=== PATIENT | male | born 1990 | race Caucasian/White ===

== ENCOUNTER 2020-07-28 15:54 | Inpatient (IN) | payer OTHER ==
--- NOTE | 2020-07-28 18:47 | HP ---
CIWA Score Nausea/Vomitin Muscle Tremors: 3 Anxiety: 3 Agitation: 1-Slight > Activity Paroxysmal Sweats: 2 Orientation: 0-Oriented Tacttile Disturbances: 0-None Auditory Disturbances: 0-None Visual Disturbances: 0-None Headache: 2-Mild CIWA-Ar Total Score: 13 - Admission Criteria OASAS Guidelines: Admission for Medically Managed Detox: Requires at least one of the followin. CIWA greater than 12 2. Seizures within the past 24 hours 3. Delirium tremens within the past 24 hours 4. Hallucinations within the past 24 hours 5. Acute intervention needed for co occurring medical disorder 6. Acute intervention needed for co occurring psychiatric disorder 7. Severe withdrawal that cannot be handled at a lower level of care (continued vomiting, continued diarrhea, abnormal vital signs) requiring intravenous medication and/or fluids 8. Admission ROS [facility] Chief Complaint: Seeking admission to detox from Xanax and klonopin Allergies/Adverse Reactions: Allergies Allergy/AdvReac Type Severity Reaction Status Date / Time No Known Allergies Allergy Verified 07/28/20 19:02 History of Present Illness: 29 years old male with a long history of benzodiazepine dependence is seeking admission to detox. This is his first admission to [facility] and he reports that his last detox was at [facility] and he relapsed in June 2020. He uses 6-8mg Xanax tablet and Klonopin 7mg tablet oral daily. He denies medical history, psych. history and suicidal attempt / ideation at this time. 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 He reports blackouts and denies history of overdose. Exam Limitations: No Limitations - Ebola screening Have you traveled outside of the country in the last 21 days: No Have you had contact with anyone from an Ebola affected area: No Have you been sick,other than usual withdrawal symptoms: No Do you have a fever: No - Review of Systems Constitutional: Chills, Malaise EENT: reports: Nose Congestion Respiratory: reports: No Symptoms reported Cardiac: reports: No Symptoms Reported GI: reports: Nausea, Poor Appetite, Poor Fluid Intake, Abdominal cramping : reports: No Symptoms Reported Musculoskeletal: reports: No Symptoms Reported Integumentary: reports: Flushing Neuro: reports: Tremors Endocrine: reports: No Symptoms Reported Hematology: reports: No Symptoms Reported Psychiatric: reports: Mood/Affect Appropiate, Orientated x3 Other Systems: Reviewed and Negative Patient History - Patient Medical History Hx Anemia: No Hx Asthma: No Hx Chronic Obstructive Pulmonary Disease (COPD): No Hx Cardiac Disorders: No Hx Congestive Heart Failure: No Hx Hypertension: No Hx Hypercholesterolemia: No HX Cerebrovascular Accident: No Hx Seizures: No Hx Diabetes: No Hx Gastrointestinal Disorders: No Hx Liver Disease: No Hx Genitourinary Disorders: No Hx Sexually Transmitted Disorders: No Hx Renal Disease (ESRD): No Hx Thyroid Disease: No Hx Human Immunodeficiency Virus (HIV): No (Negative 2018) Hx Hepatitis C: No Hx Depression: No Hx Suicide Attempt: No (Denies suicidal ideation at this time) Hx Bipolar Disorder: No Hx Schizophrenia: No - Patient Surgical History Past Surgical History: Yes Hx Neurologic Surgery: No Hx Cataract Extraction: No Hx Cardiac Surgery: No Hx Lung Surgery: No Hx Breast Surgery: No Hx Appendectomy: Yes (2010) Hx Cholecystectomy: No Hx Genitourinary Surgery: No Hx Orthopedic Surgery: Yes (Bilateral knee surgery 2006, 2007) Anesthesia Reaction: No - PPD History Previous Implant?: Yes Documented Results: Negative w/o proof Implanted On Prior R Admission?: No PPD to be Administered?: Yes - Reproductive History Patient is a Female of Child Bearing Age (11 -55 yrs old): No (Male) - Smoking Cessation Smoking history: Never smoked Have you smoked in the past 12 months: No Hx Chewing Tobacco Use: No Initiated information on smoking cessation: No - Substance & Tx. History Hx Alcohol Use: No Hx Substance Use: Yes Substance Use Type: Cocaine, Tranquilizers [facility] - Substances abused Alprazolam (Xanax) Substance route: Oral Frequency: Daily Amount used: 6-8mg Age of first use: 14 Date of last use: 07/28/20 Benzodiazepine (Klonopin) Substance route: Oral Frequency: Daily Amount used: 7mg Age of first use: 18 Date of last use: 07/27/20 Admission Physical Exam BHS - Physical General Appearance: Yes: Moderate Distress HEENTM: Yes: Within Normal Limits Respiratory: Yes: Lungs Clear, Normal Breath Sounds, No Respiratory Distress Neck: Yes: Within Normal Limits Breast: Yes: Breast Exam Deferred Cardiology: Yes: Regular Rhythm, Regular Rate Abdominal: Yes: Normal Bowel Sounds Genitourinary: Yes: Within Normal Limits Back: Yes: Within Normal Limits Musculoskeletal: Yes: Within Normal Limits Extremities: Yes: Within Normal Limits, Tremors Neurological: Yes: Within Normal Limits Integumentary: Yes: Within Normal Limits Lymphatic: Yes: Within Normal Limits - Diagnostic (1) Sedative, hypnotic or anxiolytic abuse, uncomplicated Current Visit: Yes Status: Acute (2) Depressed Current Visit: Yes Status: Acute Qualifiers: Depression Type: other depression Qualified Code(s): F32.89 - Other specified depressive episodes Cleared for Admission [facility] - Detox or Rehab [facility] Level of Care: Medically Managed Detox Regimen/Protocol: Valium Claeared for Rehab Admission: No Breathalyzer - Breathalyzer Breathalyzer: 0 Urine Drug Screen - Test Device Lot number: [id number] Expiration date: 03/04/22 - Control Is test valid?: Yes - Results Drug screen NEGATIVE: No Urine drug screen results: JACKSON-Cocaine, MET-Methamphetamine, AMP-Amphetamines, BZO-Benzodiazepines Inpatient Rehab Admission - Rehab Decision to Admit Inpatient rehab admission?: No
[2020-07-28] MEDS ORDERED: MAG HYDROX/AL HYDROX/SIMETH 30 ML UNIT-DOSE CUP PO PRN (19:22)
[2020-07-28] MEDS ORDERED: ACETAMINOPHEN 325 MG TABLET (FP) PO PRN ×2 (19:22)
[2020-07-28] MEDS ORDERED: MAGNESIUM CITRATE 300 ML BOTTLE PO PRN (19:22)
[2020-07-28] MEDS ORDERED: METHOCARBAMOL 500 MG TABLET PO PRN (19:22)
[2020-07-28] MEDS ORDERED: MAGNESIUM HYDROX 2400MG/30ML ORAL SUSPENSION 30 ML CUP PO PRN (19:22)
[2020-07-28] MEDS ORDERED: MENTHOL/PHENOL 1 EACH UD MM PRN (19:22)
[2020-07-28] MEDS ORDERED: BISMUTH SUBSALICYLATE 524 MG/30 ML UD PO PRN (19:22)
[2020-07-28] MEDS ORDERED: IBUPROFEN 400 MG TABLET (FP) PO PRN (19:22)
[2020-07-28] MEDS ORDERED: ONDANSETRON *ODT* 4 MG TABLET SL PRN (19:22)
[2020-07-28] MEDS ORDERED: hydrOXYzine PAMOATE 25 MG CAPSULE (FP) PO PRN (19:22)
[2020-07-28 20:57] VITALS: BMI 24.2
[2020-07-28] MEDS: MELATONIN 5 MG TABLETS PO SCH (21:58)
[2020-07-28] MEDS: THIAMINE HCL 100 MG TABLET (FP) PO SCH (21:58)
[2020-07-28] MEDS: diazePAM 5 MG TABLET PO SCH (21:58)
[2020-07-29] MEDS: diazePAM 5 MG TABLET PO SCH ×3 (06:01→23:10)
--- NOTE | 2020-07-29 09:51 | EKG ---
Test Reason : Blood Pressure : / mmHG Vent. Rate : 068 BPM Atrial Rate : 068 BPM P-R Int : 144 ms QRS Dur : 116 ms QT Int : 422 ms P-R-T Axes : 067 072 043 degrees QTc Int : 448 ms NORMAL SINUS RHYTHM LEFT VENTRICULAR HYPERTROPHY WITH QRS WIDENING ABNORMAL ECG NO PREVIOUS ECGS AVAILABLE Confirmed by MD TAMRA, AURA ([id number]) on 07/29/2020 9:51:12 AM Referred By: Confirmed By:AURA BARBOZA MD
[2020-07-29] MEDS: diazePAM 5 MG TABLET PO PRN (10:15)
[2020-07-29] MEDS: PRENATAL VITAMINS W/ FOLIC ACID TABLET (FP) PO SCH (10:16)
[2020-07-29 11:14] LABS: HEMATOCRIT 38.2 % (35.4-49); HEMOGLOBIN 13.1 GM/dL (11.7-16.9); MCH 29.7 pg (25.7-33.7); MCHC 34.3 g/dl (32.0-35.9); MEAN CELL VOLUME 86.6 fl (80-96); MEAN PLT VOLUME 9.8 fl (7.5-11.1); PLATELET COUNT 154 K/MM3 (134-434); RBC 4.41 M/mm3 (4.00-5.60); RDW 13.4 % (11.9-15.9); WHITE BLOOD COUNT 4.6 K/mm3 (4.0-10.0)
[2020-07-29 11:19] LABS: ALBUMIN 3.2 g/dl (3.4-5.0); BILIRUBIN,TOTAL 0.6 mg/dL (0.2-1); BLOOD UREA NITROGEN 12.2 mg/dL (7-18); CALCIUM 8.3 mg/dL (8.5-10.1); CREATININE 1.2 mg/dL (0.55-1.3); POTASSIUM 3.9 mmol/L (3.5-5.1)
--- NOTE | 2020-07-29 13:13 | PN ---
[facility] CIWA - CIWA Score Nausea/Vomitin-No Nausea/No Vomiting Muscle Tremors: 3 Anxiety: 3 Agitation: 1-Slight > Activity Paroxysmal Sweats: 1-Minimal Palms Moist Orientation: 0-Oriented Tacttile Disturbances: 0-None Auditory Disturbances: 0-None Visual Disturbances: 2-Mild Sensitivity Headache: 0-None Present CIWA-Ar Total Score: 10 S Progress Note (SOAP) Subjective: 29 years old male was admitted on 07/28/20 for benzo withdrawal sx management treating with valium detox regiment feels tired and anxious increase vistaril to 50 mg po prn mr fletcher will be seen by a psychiatrist for further medical treatment Objective: 07/29/20 13:14 Vital Signs - 24 hr 07/28/20 07/28/20 07/29/20 20:54 21:25 06:22 Temperature 98.4 F 97.0 F L 97.3 F L Pulse Rate 81 55 L 56 L Respiratory 18 17 16 Rate Blood Pressure 137/81 111/72 103/62 O2 Sat by Pulse 100 97 Oximetry (%) 07/29/20 08:45 Temperature 97.2 F L Pulse Rate 62 Respiratory 18 Rate Blood Pressure 121/70 O2 Sat by Pulse Oximetry (%) Laboratory Tests 07/29/20 07/29/20 07/29/20 08:10 08:10 08:10 WBC 4.6 RBC 4.41 Hgb 13.1 Hct 38.2 MCV 86.6 MCH 29.7 MCHC 34.3 RDW 13.4 Plt Count 154 MPV 9.8 Sodium 142 Potassium 3.9 Chloride 107 Carbon Dioxide 32 Anion Gap 4 L BUN 12.2 Creatinine 1.2 Est GFR (CKD-EPI)AfAm 92.83 Est GFR (CKD-EPI)NonAf 80.09 Random Glucose 111 H Calcium 8.3 L Total Bilirubin 0.6 AST 27 ALT 34 Alkaline Phosphatase 48 Total Protein 6.0 L Albumin 3.2 L Syphilis Serology Non-reactive 07/29/20 13:15 covid pending Assessment: 07/29/20 13:15 benzo withdrawal Plan: valium regiment
--- NOTE | 2020-07-29 15:19 | CONSULT ---
[facility] Psychiatric Consult - Data Date of interview: 07/29/20 Admission source: [facility] Identifying data: First visit to [facility] and admission to [address] [place] [address] for this 29 y/o male self-referred for detoxification treatment. ALICIA issues : crack/cocaine, cannabis, xanax, psychostimulants (adderall). 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 Substance Abuse History: Discussed with the patient. ALICIA profile as follows : Smoking history: Never smoked. Have you smoked in the past 12 months: No. Hx Chewing Tobacco Use: No. Initiated information on smoking cessation: No. - Substance & Tx. History. Hx Alcohol Use: No. Hx Substance Use: Yes. Substance Use Type: Cocaine, Tranquilizers. [facility] - Substances abused. Alprazolam (Xanax). Substance route: Oral. Frequency: Daily. Amount used: 6-8mg. Age of first use: 14. Date of last use: 07/28/20. Benzodiazepine (Klonopin). Substance route: Oral. Frequency: Daily. Amount used: 7mg. Age of first use: 18. Date of last use: 07/27/20. Medical History: Patient endorses good general health. History of bilateral knee surgery. No known allergies. Psychiatric History: Patient denies history of psychiatric hospitalizations, OPD care or sucide attempts. Physical/Sexual Abuse/Trauma History: Patient denies. Additional Comment: Urine drug screen results: JACKSON-Cocaine, MET-Methamphetamine, AMP-Amphetamines, BZO-Benzodiazepines. Noted. Mental Status Exam - Mental Status Exam Alert and Oriented to: Time, Place, Person Cognitive Function: Good Patient Appearance: Well Groomed Mood: Withdrawn, Hopeful Affect: Appropriate, Normal Range Patient Behavior: Fatigued, Appropriate, Cooperative Speech Pattern: Clear, Appropriate Voice Loudness: Normal Thought Process: Intact, Goal Oriented Thought Disorder: Not Present Hallucinations: Denies Suicidal Ideation: Denies Homicidal Ideation: Denies Insight/Judgement: Poor Sleep: Well Appetite: Good Gait/Station: Normal Psychiatric Findings - Problem List ([place] 1, 2,3) (1) Cocaine use disorder Current Visit: Yes Status: Chronic (2) Benzodiazepine dependence Current Visit: Yes Status: Chronic (3) Amphetamine abuse Current Visit: Yes Status: Chronic - Initial Treatment Plan Initial Treatment Plan: Psychoeducation. Sleep hygiene. Support. Detoxification. Observation.
[2020-07-29] MEDS ORDERED: hydrOXYzine PAMOATE 50 MG CAPSULE (FP) PO PRN (17:00)
[2020-07-29] MEDS: MELATONIN 5 MG TABLETS PO SCH (23:11)
[2020-07-29] MEDS: THIAMINE HCL 100 MG TABLET (FP) PO SCH (23:11)
[2020-07-30] MEDS: diazePAM 5 MG TABLET PO SCH ×2 (05:21→18:40)
[2020-07-30] MEDS: PRENATAL VITAMINS W/ FOLIC ACID TABLET (FP) PO SCH (10:12)
[2020-07-30] MEDS: diazePAM 5 MG TABLET PO PRN (10:12)
--- NOTE | 2020-07-30 14:19 | PN ---
S CIWA - CIWA Score Nausea/Vomitin-Mild Nausea/No Vomiting Muscle Tremors: 2 Anxiety: 2 Agitation: 2 Paroxysmal Sweats: No Perspiration Orientation: 0-Oriented Tacttile Disturbances: 1-Very Mild Itch/Numbness Auditory Disturbances: 0-None Visual Disturbances: 0-None Headache: 1-Very Mild CIWA-Ar Total Score: 9 S Progress Note (SOAP) Subjective: alert,irritable,interrupted sleep,aching pain in the body, Objective: 07/30/20 14:18 Vital Signs Temperature 97.8 F 07/30/20 13:00 Pulse Rate 74 07/30/20 13:00 Respiratory Rate 18 07/30/20 13:00 Blood Pressure 130/75 07/30/20 13:00 O2 Sat by Pulse Oximetry (%) 99 07/30/20 13:00 07/30/20 14:18 Laboratory Last Values WBC 4.6 K/mm3 (4.0-10.0) 07/29/20 08:10 RBC 4.41 M/mm3 (4.00-5.60) 07/29/20 08:10 Hgb 13.1 GM/dL (11.7-16.9) 07/29/20 08:10 Hct 38.2 % (35.4-49) 07/29/20 08:10 MCV 86.6 fl (80-96) 07/29/20 08:10 MCH 29.7 pg (25.7-33.7) 07/29/20 08:10 MCHC 34.3 g/dl (32.0-35.9) 07/29/20 08:10 RDW 13.4 % (11.9-15.9) 07/29/20 08:10 Plt Count 154 K/MM3 (134-434) 07/29/20 08:10 MPV 9.8 fl (7.5-11.1) 07/29/20 08:10 Sodium 142 mmol/L (136-145) 07/29/20 08:10 Potassium 3.9 mmol/L (3.5-5.1) 07/29/20 08:10 Chloride 107 mmol/L (98-107) 07/29/20 08:10 Carbon Dioxide 32 mmol/L (21-32) 07/29/20 08:10 Anion Gap 4 MMOL/L (8-16) L 07/29/20 08:10 BUN 12.2 mg/dL (7-18) 07/29/20 08:10 Creatinine 1.2 mg/dL (0.55-1.3) 07/29/20 08:10 Est GFR (CKD-EPI)AfAm 92.83 07/29/20 08:10 Est GFR (CKD-EPI)NonAf 80.09 07/29/20 08:10 Random Glucose 111 mg/dL (74-106) H 07/29/20 08:10 Calcium 8.3 mg/dL (8.5-10.1) L 07/29/20 08:10 Total Bilirubin 0.6 mg/dL (0.2-1) 07/29/20 08:10 AST 27 U/L (15-37) 07/29/20 08:10 ALT 34 U/L (13-61) 07/29/20 08:10 Alkaline Phosphatase 48 U/L (45-117) 07/29/20 08:10 Total Protein 6.0 g/dl (6.4-8.2) L 07/29/20 08:10 Albumin 3.2 g/dl (3.4-5.0) L 07/29/20 08:10 Syphilis Serology Non-reactive (NONREACTIVE) 07/29/20 08:10 COVID-19 (BRYON) Not detected (Not Detected) 07/28/20 20:40 HIV Ag/Ab Combo Qual Negative (NEGATIVE) 07/29/20 08:10 Assessment: 07/30/20 14:18 withdrawal symptom Plan: continue detox valium regimen,discharge in am
[2020-07-30] MEDS: MELATONIN 5 MG TABLETS PO SCH (23:10)
[2020-07-30] MEDS: THIAMINE HCL 100 MG TABLET (FP) PO SCH (23:10)
[2020-07-31] MEDS ORDERED: diazePAM 5 MG TABLET PO ONE (06:00)
[2020-07-31 09:32] VITALS: BP 135/83; PULSE 68; TEMP 96.9
--- NOTE | 2020-07-31 10:05 | DS ---
[facility] Detox Discharge Summary Admission Date: 07/28/20 Discharge Date: 07/31/20 - History Present History: Cocaine Dependence, Sedative Dependence Additional Comments: alert,oriented x 3 ambulation on the unit lung clear on auscultation bilaterally no abdominal pain detox completed,no withdrawal symptom stable for discharge follow up with [facility] rehab total time of discharge 30 minutes Pertinent Past History: depression - Physical Exam Results Vital Signs: Vital Signs Temperature 96.9 F L 07/31/20 08:40 Pulse Rate 68 07/31/20 08:40 Respiratory Rate 16 07/31/20 08:40 Blood Pressure 135/83 07/31/20 08:40 O2 Sat by Pulse Oximetry (%) 100 07/31/20 07:10 Pertinent Admission Physical Exam Findings: withdrawal signs and symptom Laboratory Last Values WBC 4.6 K/mm3 (4.0-10.0) 07/29/20 08:10 RBC 4.41 M/mm3 (4.00-5.60) 07/29/20 08:10 Hgb 13.1 GM/dL (11.7-16.9) 07/29/20 08:10 Hct 38.2 % (35.4-49) 07/29/20 08:10 MCV 86.6 fl (80-96) 07/29/20 08:10 MCH 29.7 pg (25.7-33.7) 07/29/20 08:10 MCHC 34.3 g/dl (32.0-35.9) 07/29/20 08:10 RDW 13.4 % (11.9-15.9) 07/29/20 08:10 Plt Count 154 K/MM3 (134-434) 07/29/20 08:10 MPV 9.8 fl (7.5-11.1) 07/29/20 08:10 Sodium 142 mmol/L (136-145) 07/29/20 08:10 Potassium 3.9 mmol/L (3.5-5.1) 07/29/20 08:10 Chloride 107 mmol/L (98-107) 07/29/20 08:10 Carbon Dioxide 32 mmol/L (21-32) 07/29/20 08:10 Anion Gap 4 MMOL/L (8-16) L 07/29/20 08:10 BUN 12.2 mg/dL (7-18) 07/29/20 08:10 Creatinine 1.2 mg/dL (0.55-1.3) 07/29/20 08:10 Est GFR (CKD-EPI)AfAm 92.83 07/29/20 08:10 Est GFR (CKD-EPI)NonAf 80.09 07/29/20 08:10 Random Glucose 111 mg/dL (74-106) H 07/29/20 08:10 Calcium 8.3 mg/dL (8.5-10.1) L 07/29/20 08:10 Total Bilirubin 0.6 mg/dL (0.2-1) 07/29/20 08:10 AST 27 U/L (15-37) 07/29/20 08:10 ALT 34 U/L (13-61) 07/29/20 08:10 Alkaline Phosphatase 48 U/L (45-117) 07/29/20 08:10 Total Protein 6.0 g/dl (6.4-8.2) L 07/29/20 08:10 Albumin 3.2 g/dl (3.4-5.0) L 07/29/20 08:10 Syphilis Serology Non-reactive (NONREACTIVE) 07/29/20 08:10 COVID-19 (BRYON) Not detected (Not Detected) 07/28/20 20:40 HIV Ag/Ab Combo Qual Negative (NEGATIVE) 07/29/20 08:10 Vital Signs Temperature 96.9 F L 07/31/20 08:40 Pulse Rate 68 07/31/20 08:40 Respiratory Rate 16 07/31/20 08:40 Blood Pressure 135/83 07/31/20 08:40 O2 Sat by Pulse Oximetry (%) 100 07/31/20 07:10 - Treatment Hospital Course: Detox Protocol Followed, Detoxed Safely, Discharged Condition Good, Rehab Referral Accepted Patient has Accepted a Rehab Referral to: [facility] - Medication Discharge Medications: Ambulatory Orders NK [No Known Home Medication] 07/28/20 - Diagnosis (1) Depressed Status: Acute Qualifiers: Depression Type: other depression Qualified Code(s): F32.89 - Other specified depressive episodes (2) Sedative, hypnotic or anxiolytic abuse, uncomplicated Status: Acute (3) Amphetamine abuse Status: Chronic (4) Cocaine use disorder Status: Chronic - AMA Did Patient Leave Against Medical Advice: No
--- NOTE | 2020-07-31 10:05 | PN ---
[facility] CIWA - CIWA Score Nausea/Vomitin-No Nausea/No Vomiting Muscle Tremors: None Anxiety: 1-Mildly Anxious Agitation: 0-Normal Activity Paroxysmal Sweats: No Perspiration Orientation: 0-Oriented Tacttile Disturbances: 0-None Auditory Disturbances: 0-None Visual Disturbances: 0-None Headache: 0-None Present CIWA-Ar Total Score: 1 BHS Progress Note (SOAP) Subjective: alert,no complaint Objective: 07/31/20 14:18 Vital Signs Temperature 96.9 F L 07/31/20 08:40 Pulse Rate 68 07/31/20 08:40 Respiratory Rate 16 07/31/20 08:40 Blood Pressure 135/83 07/31/20 08:40 O2 Sat by Pulse Oximetry (%) 100 07/31/20 07:10 Assessment: 07/31/20 14:18 detox completed,no withdrawal symptom Plan: follow up with after care program [facility] as arrangement
[2020-07-31] MEDS: PRENATAL VITAMINS W/ FOLIC ACID TABLET (FP) PO SCH (10:07)
--- NOTE | 2020-07-31 14:23 | DS ---
[facility] Detox Discharge Summary Admission Date: 07/28/20 Discharge Date: 07/31/20 - History Present History: Cocaine Dependence, Sedative Dependence Pertinent Past History: depression - Physical Exam Results Vital Signs: Vital Signs Temperature 96.9 F L 07/31/20 08:40 Pulse Rate 68 07/31/20 08:40 Respiratory Rate 16 07/31/20 08:40 Blood Pressure 135/83 07/31/20 08:40 O2 Sat by Pulse Oximetry (%) 100 07/31/20 07:10 Pertinent Admission Physical Exam Findings: withdrawal signs and symptom Laboratory Last Values WBC 4.6 K/mm3 (4.0-10.0) 07/29/20 08:10 RBC 4.41 M/mm3 (4.00-5.60) 07/29/20 08:10 Hgb 13.1 GM/dL (11.7-16.9) 07/29/20 08:10 Hct 38.2 % (35.4-49) 07/29/20 08:10 MCV 86.6 fl (80-96) 07/29/20 08:10 MCH 29.7 pg (25.7-33.7) 07/29/20 08:10 MCHC 34.3 g/dl (32.0-35.9) 07/29/20 08:10 RDW 13.4 % (11.9-15.9) 07/29/20 08:10 Plt Count 154 K/MM3 (134-434) 07/29/20 08:10 MPV 9.8 fl (7.5-11.1) 07/29/20 08:10 Sodium 142 mmol/L (136-145) 07/29/20 08:10 Potassium 3.9 mmol/L (3.5-5.1) 07/29/20 08:10 Chloride 107 mmol/L (98-107) 07/29/20 08:10 Carbon Dioxide 32 mmol/L (21-32) 07/29/20 08:10 Anion Gap 4 MMOL/L (8-16) L 07/29/20 08:10 BUN 12.2 mg/dL (7-18) 07/29/20 08:10 Creatinine 1.2 mg/dL (0.55-1.3) 07/29/20 08:10 Est GFR (CKD-EPI)AfAm 92.83 07/29/20 08:10 Est GFR (CKD-EPI)NonAf 80.09 07/29/20 08:10 Random Glucose 111 mg/dL (74-106) H 07/29/20 08:10 Calcium 8.3 mg/dL (8.5-10.1) L 07/29/20 08:10 Total Bilirubin 0.6 mg/dL (0.2-1) 07/29/20 08:10 AST 27 U/L (15-37) 07/29/20 08:10 ALT 34 U/L (13-61) 07/29/20 08:10 Alkaline Phosphatase 48 U/L (45-117) 07/29/20 08:10 Total Protein 6.0 g/dl (6.4-8.2) L 07/29/20 08:10 Albumin 3.2 g/dl (3.4-5.0) L 07/29/20 08:10 Syphilis Serology Non-reactive (NONREACTIVE) 07/29/20 08:10 COVID-19 (BRYON) Not detected (Not Detected) 07/28/20 20:40 HIV Ag/Ab Combo Qual Negative (NEGATIVE) 07/29/20 08:10 Vital Signs Temperature 96.9 F L 07/31/20 08:40 Pulse Rate 68 07/31/20 08:40 Respiratory Rate 16 07/31/20 08:40 Blood Pressure 135/83 07/31/20 08:40 O2 Sat by Pulse Oximetry (%) 100 07/31/20 07:10 - Treatment Hospital Course: Detox Protocol Followed, Detoxed Safely, Responded well, Discharged Condition Good, Rehab Referral Accepted Patient has Accepted a [facility] Referral [facility] - Medication Discharge Medications: Ambulatory Orders NK [No Known Home Medication] 07/28/20 - Diagnosis (1) Depressed Status: Acute Qualifiers: Depression Type: other depression Qualified Code(s): F32.89 - Other specified depressive episodes (2) Sedative, hypnotic or anxiolytic abuse, uncomplicated Status: Acute (3) Amphetamine abuse Status: Chronic (4) Cocaine use disorder Status: Chronic - AMA Did Patient Leave Against Medical Advice: No
== END 2020-07-31 11:40 | disposition other institution (70) | DRG 774 ==
LOC: YASAS 15:54 → Y3N 19:30
PROVIDERS: ADMIT Allergy & Immunology; ATTEND Allergy & Immunology
PROC: HZ2ZZZZ Detoxification Services for Substance Abuse Treatment (ICD-10-PCS; principal; 2020-07-28)
DX: F13.230 Sedative, hypnotic or anxiolytic dependence with withdrawal, uncomplicated (principal); F14.20 Cocaine dependence, uncomplicated; F15.10 Other stimulant abuse, uncomplicated; F12.20 Cannabis dependence, uncomplicated; F32.89 Other specified depressive episodes; Z98.890 Other specified postprocedural states
CPT/HCPCS: 36415; 80053; 85027; 86780; 87389; 93005; 93010; U0003

== ENCOUNTER 2020-07-31 11:44 | Inpatient (IN) | payer OTHER ==
[2020-07-31] MEDS ORDERED: ACETAMINOPHEN 325 MG TABLET (FP) PO PRN (13:28)
[2020-07-31] MEDS ORDERED: MAGNESIUM HYDROX 2400MG/30ML ORAL SUSPENSION 30 ML CUP PO PRN (13:28)
[2020-07-31] MEDS ORDERED: guaiFENesin 200 MG/10 ML 10 ML UNIT-DOSE CUPS PO PRN (13:28)
[2020-07-31] MEDS ORDERED: LOPERAMIDE HCL 2 MG CAPSULE PO PRN (13:28)
[2020-07-31] MEDS ORDERED: NICOTINE POLACRILEX 2 MG GUM BUC PRN (13:28)
[2020-07-31] MEDS ORDERED: MAGNESIUM CITRATE 300 ML BOTTLE PO PRN (13:28)
[2020-07-31] MEDS ORDERED: P-EPHED 60MG/TRIPROLIDI 2.5MG TABLET PO PRN (13:28)
[2020-07-31] MEDS ORDERED: MENTHOL/PHENOL 1 EACH UD MM PRN (13:28)
[2020-07-31] MEDS ORDERED: MAG HYDROX/AL HYDROX/SIMETH 30 ML UNIT-DOSE CUP PO PRN (13:28)
--- NOTE | 2020-07-31 13:28 | HP ---
[facility] Rehab Assess/Revision - Admission History Admitted to Rehab from: [facility] [place] - Vital signs Vital Signs: Vital Signs Period Temp Pulse Resp BP Sys/Forbes Pulse Ox Last 24 Hr 98.0 F 76 19 123/78 98 - Findings Detox History & Physical reviewed: Yes Concur with findings: Yes Inpatient Rehab Admission - Rehab Decision to Admit Inpatient rehab admission?: Yes - Initial Determination Are CD services needed?: Yes Free of communicable disease: Yes Not in need of hospitalization: Yes - Rehab Admission Criteria Previous failed treatment: Yes Poor recovery environment: Yes Comorbidities: No Lacks judgement: Yes Patient is meeting Inpatient Rehab admission criteria:: Yes
[2020-07-31] MEDS: hydrOXYzine PAMOATE 25 MG CAPSULE (FP) PO PRN (21:01)
[2020-07-31] MEDS: THIAMINE HCL 100 MG TABLET (FP) PO SCH (21:01)
[2020-07-31] MEDS: MELATONIN 5 MG TABLETS PO SCH (21:01)
[2020-08-01] MEDS: PRENATAL VITAMINS W/ FOLIC ACID TABLET (FP) PO SCH (09:43)
[2020-08-01] MEDS: IBUPROFEN 400 MG TABLET (FP) PO PRN (09:43)
[2020-08-01] MEDS ORDERED: NICOTINE 7 MG/24 HOURS TOPICAL PATCH TD SCH (10:00)
[2020-08-01] MEDS: hydrOXYzine PAMOATE 25 MG CAPSULE (FP) PO PRN (21:34)
[2020-08-01] MEDS: MELATONIN 5 MG TABLETS PO SCH (21:34)
[2020-08-01] MEDS: THIAMINE HCL 100 MG TABLET (FP) PO SCH (21:34)
[2020-08-02] MEDS: PRENATAL VITAMINS W/ FOLIC ACID TABLET (FP) PO SCH (10:04)
[2020-08-02] MEDS: THIAMINE HCL 100 MG TABLET (FP) PO SCH (21:08)
[2020-08-02] MEDS: MELATONIN 5 MG TABLETS PO SCH (21:08)
[2020-08-02] MEDS: hydrOXYzine PAMOATE 25 MG CAPSULE (FP) PO PRN (21:08)
[2020-08-03] MEDS: PRENATAL VITAMINS W/ FOLIC ACID TABLET (FP) PO SCH (09:58)
[2020-08-03] MEDS: hydrOXYzine PAMOATE 25 MG CAPSULE (FP) PO PRN (21:35)
[2020-08-03] MEDS: MELATONIN 5 MG TABLETS PO SCH (21:35)
[2020-08-03] MEDS: THIAMINE HCL 100 MG TABLET (FP) PO SCH (21:35)
[2020-08-04] MEDS: PRENATAL VITAMINS W/ FOLIC ACID TABLET (FP) PO SCH (10:08)
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
[2020-08-04] MEDS: THIAMINE HCL 100 MG TABLET (FP) PO SCH (21:07)
[2020-08-04] MEDS: QUEtiapine FUMARATE 50 MG TABLET PO SCH (21:07)
[2020-08-04] MEDS: hydrOXYzine PAMOATE 25 MG CAPSULE (FP) PO PRN (21:07)
[2020-08-04] MEDS: MELATONIN 5 MG TABLETS PO SCH (21:07)
[2020-08-05] MEDS: PRENATAL VITAMINS W/ FOLIC ACID TABLET (FP) PO SCH (10:00)
[2020-08-05] MEDS: hydrOXYzine PAMOATE 25 MG CAPSULE (FP) PO PRN (10:00)
[2020-08-05] MEDS: MELATONIN 5 MG TABLETS PO SCH (21:40)
[2020-08-05] MEDS: QUEtiapine FUMARATE 50 MG TABLET PO SCH (21:40)
[2020-08-05] MEDS: THIAMINE HCL 100 MG TABLET (FP) PO SCH (21:40)
[2020-08-06] MEDS: PRENATAL VITAMINS W/ FOLIC ACID TABLET (FP) PO SCH (10:11)
[2020-08-06] MEDS: hydrOXYzine PAMOATE 25 MG CAPSULE (FP) PO PRN ×2 (10:11→21:08)
[2020-08-06] MEDS: MELATONIN 5 MG TABLETS PO SCH (21:07)
[2020-08-06] MEDS: THIAMINE HCL 100 MG TABLET (FP) PO SCH (21:08)
[2020-08-06] MEDS: QUEtiapine FUMARATE 50 MG TABLET PO SCH (22:30)
[2020-08-07] MEDS: PRENATAL VITAMINS W/ FOLIC ACID TABLET (FP) PO SCH (09:55)
[2020-08-07] MEDS: hydrOXYzine PAMOATE 25 MG CAPSULE (FP) PO PRN ×2 (09:55→21:33)
[2020-08-07] MEDS: THIAMINE HCL 100 MG TABLET (FP) PO SCH (22:20)
[2020-08-07] MEDS: QUEtiapine FUMARATE 50 MG TABLET PO SCH (22:20)
[2020-08-07] MEDS: MELATONIN 5 MG TABLETS PO SCH (22:20)
[2020-08-08] MEDS: hydrOXYzine PAMOATE 25 MG CAPSULE (FP) PO PRN ×2 (10:03→21:05)
[2020-08-08] MEDS: PRENATAL VITAMINS W/ FOLIC ACID TABLET (FP) PO SCH (10:03)
[2020-08-08] MEDS: THIAMINE HCL 100 MG TABLET (FP) PO SCH (21:05)
[2020-08-08] MEDS: MELATONIN 5 MG TABLETS PO SCH (22:55)
[2020-08-08] MEDS: QUEtiapine FUMARATE 50 MG TABLET PO SCH (22:55)
[2020-08-09] MEDS: PRENATAL VITAMINS W/ FOLIC ACID TABLET (FP) PO SCH (10:07)
[2020-08-09] MEDS: hydrOXYzine PAMOATE 25 MG CAPSULE (FP) PO PRN (21:38)
[2020-08-09] MEDS: THIAMINE HCL 100 MG TABLET (FP) PO SCH (21:38)
[2020-08-09] MEDS: QUEtiapine FUMARATE 50 MG TABLET PO SCH (21:38)
[2020-08-09] MEDS: MELATONIN 5 MG TABLETS PO SCH (21:39)
[2020-08-10] MEDS: PRENATAL VITAMINS W/ FOLIC ACID TABLET (FP) PO SCH (09:52)
[2020-08-10] MEDS: hydrOXYzine PAMOATE 25 MG CAPSULE (FP) PO PRN ×3 (09:53→21:04)
--- NOTE | 2020-08-10 14:24 | PN ---
[facility] Progress Note Note: Patient is scheduled for discharge tomorrow. Script for 30 days supply of Seroquel 50 mg/hs will be electronically transmitted to [facility], [address] [place] [address] [place], [place] [address]
[2020-08-10] MEDS: THIAMINE HCL 100 MG TABLET (FP) PO SCH (21:04)
[2020-08-10] MEDS: IBUPROFEN 400 MG TABLET (FP) PO PRN (21:05)
[2020-08-10] MEDS: QUEtiapine FUMARATE 50 MG TABLET PO SCH (22:48)
[2020-08-10] MEDS: MELATONIN 5 MG TABLETS PO SCH (22:48)
--- NOTE | 2020-08-11 08:51 | PN ---
[facility] Progress Note Note: Pt was scheduled for discharge today but counselor request for current covid-19 test needed for next level of care. Pt had last covid-19 test on 07/28/20. covid- 19 test was already ordered by Leonor Gordillo on 08/10/20 to be done today for referral to [facility] aftercare. Discussed case with Eliecer Castillo and Behzad. Vital Signs - 24 hr 08/10/20 08/10/20 08/11/20 15:19 20:30 06:26 Temperature 98.3 F 98 F Pulse Rate 69 Respiratory 18 Rate Blood Pressure 143/88 O2 Sat by Pulse 97 96 97 Oximetry (%) Alert o x 3 nad oob ambulating with steady gait. stable Covid-19 test done D/c held till 08/13/20 to [facility]. Staff to follow up result and discharge date.
[2020-08-11] MEDS: PRENATAL VITAMINS W/ FOLIC ACID TABLET (FP) PO SCH (09:54)
[2020-08-11] MEDS: IBUPROFEN 400 MG TABLET (FP) PO PRN ×2 (09:54→21:41)
[2020-08-11] MEDS: hydrOXYzine PAMOATE 25 MG CAPSULE (FP) PO PRN (21:40)
[2020-08-11] MEDS: THIAMINE HCL 100 MG TABLET (FP) PO SCH (21:40)
[2020-08-11] MEDS: QUEtiapine FUMARATE 50 MG TABLET PO SCH (21:45)
[2020-08-11] MEDS: MELATONIN 5 MG TABLETS PO SCH (21:50)
[2020-08-12] MEDS: PRENATAL VITAMINS W/ FOLIC ACID TABLET (FP) PO SCH (09:52)
[2020-08-12] MEDS: hydrOXYzine PAMOATE 25 MG CAPSULE (FP) PO PRN ×2 (09:53→21:05)
[2020-08-12] MEDS: IBUPROFEN 400 MG TABLET (FP) PO PRN ×2 (09:54→21:05)
[2020-08-12 20:50] VITALS: TEMP 97.7
[2020-08-12] MEDS: THIAMINE HCL 100 MG TABLET (FP) PO SCH (21:05)
[2020-08-12] MEDS: MELATONIN 5 MG TABLETS PO SCH (21:06)
[2020-08-12] MEDS: QUEtiapine FUMARATE 50 MG TABLET PO SCH (21:06)
[2020-08-13 06:52] VITALS: BP 117/78; PULSE 67
--- NOTE | 2020-08-13 08:33 | DS ---
[facility] Rehab Discharge Summary - [facility] Rehab Discharge Summary Admission Date: 07/31/20 Discharge Date: 08/13/20 - History Present History: Cocaine dependence, Sedative dependence Pertinent Past History: 29 years old male with a long history of benzodiazepine dependence. This is his first admission to [facility] and he reports that his last detox was at [facility] and he relapsed in June 2020. He uses 6-8mg Xanax tablet and Klonopin 7mg tablet oral daily. He denies medical history, psych. history and suicidal attempt / ideation at this time. 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 He reports blackouts and denies history of overdose. - Discharge Physical Exam Vital Signs: Vital Signs Temperature 97.7 F 08/13/20 06:05 Pulse Rate 67 08/13/20 06:05 Respiratory Rate 18 08/13/20 06:05 Blood Pressure 117/78 08/13/20 06:05 O2 Sat by Pulse Oximetry (%) 98 08/13/20 06:05 Pertinent Admission Physical Exam Findings: Physical General Appearance: no apparent distress HEENTM: normocephalic, PERRLA, EOMI Respiratory: No Respiratory Distress Neck: supple Abdominal: +Bowel Sounds Musculoskeletal: full weight bearing, steady gait Neurological: no neurological deficits - Treatment Discharge Condition: Discharge condition good (Medically stable for discharge.), Outpatient referral accepted (Patient is going to [facility] for aftercare.) Hospital Course: Patient attended groups, had 1;1 with his counselor and was seen by the psychiatric service. He had no acute or urgent medical problems while in rehab. - Medication Discharge Medications: Ambulatory Orders Quetiapine Fumarate [Seroquel -] 50 mg PO HS #30 tablet 08/10/20 - Medication-Assisted Treatment (MAT) Medication-Assisted Treatment (MAT): No - Discharge Instructions Diet, activity, other medical instructions: Diet: as tolerated Activity: as tolerated Other medical instructions: Please follow up with aftercare referral. 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
[2020-08-13] MEDS: PRENATAL VITAMINS W/ FOLIC ACID TABLET (FP) PO SCH (09:12)
[2020-08-13] MEDS: hydrOXYzine PAMOATE 25 MG CAPSULE (FP) PO PRN (09:13)
== END 2020-08-13 09:15 | disposition other institution (70) | DRG 772 ==
LOC: YASAS 11:44 → Y3W 11:45
PROVIDERS: ADMIT Allergy & Immunology; ATTEND Allergy & Immunology
PROC: HZ42ZZZ Group Counseling for Substance Abuse Treatment, Cognitive-Behavioral (ICD-10-PCS; principal; 2020-07-31)
DX: F13.20 Sedative, hypnotic or anxiolytic dependence, uncomplicated (principal); F14.10 Cocaine abuse, uncomplicated; F15.10 Other stimulant abuse, uncomplicated; F19.282 Other psychoactive substance dependence with psychoactive substance-induced sleep disorder; Z62.810 Personal history of physical and sexual abuse in childhood
CPT/HCPCS: U0003

== ENCOUNTER 2022-08-08 11:58 | Inpatient (IN) | payer BC, OTHER ==
[2022-08-08 12:31] VITALS: BMI 25.1
[2022-08-08] MEDS ORDERED: TRIMETHOBENZAMIDE HCL 200MG/2ML INJ IM ONE ×2 (12:43→13:30)
[2022-08-08] MEDS ORDERED: MAGNESIUM HYDROX 2400MG/30ML ORAL SUSPENSION 30 ML CUP PO PRN (13:02)
[2022-08-08] MEDS ORDERED: IBUPROFEN 400 MG TABLET (FP) PO PRN (13:02)
[2022-08-08] MEDS ORDERED: diazePAM 5 MG TABLET PO PRN (13:02)
[2022-08-08] MEDS ORDERED: cloNIDine HCL 0.1 MG TABLET PO PRN (13:02)
[2022-08-08] MEDS ORDERED: LOPERAMIDE HCL 2 MG CAPSULE PO PRN (13:02)
[2022-08-08] MEDS ORDERED: BISMUTH SUBSALICYLATE 524 MG/30 ML PO PRN (13:02)
[2022-08-08] MEDS ORDERED: MAG HYDROX/AL HYDROX/SIMETH 30 ML UNIT-DOSE CUP PO PRN (13:02)
[2022-08-08] MEDS ORDERED: MAGNESIUM CITRATE 300 ML BOTTLE PO PRN (13:02)
[2022-08-08] MEDS ORDERED: ACETAMINOPHEN 325 MG TABLET (FP) PO PRN ×2 (13:02)
[2022-08-08] MEDS ORDERED: ONDANSETRON *ODT* 4 MG TABLET SL PRN (13:02)
[2022-08-08] MEDS ORDERED: DICYCLOMINE HCL 10 MG CAPSULE PO PRN (13:02)
[2022-08-08] MEDS ORDERED: BENZOCAINE/MENTHOL (CHLORASEPTIC ) LOZENGE MM PRN (13:02)
[2022-08-08] MEDS ORDERED: methaDONE HCL 10 MG TABLET (FOR DETOX USE ONLY) PO ONE (13:30)
[2022-08-08] MEDS: diazePAM 5 MG TABLET PO SCH ×3 (13:37→22:17)
[2022-08-08] MEDS: METHOCARBAMOL 500 MG TABLET PO PRN ×2 (13:38→22:16)
[2022-08-08] MEDS: PRENATAL VITAMINS W/ FOLIC ACID TABLET (FP) PO SCH (13:38)
[2022-08-08] MEDS: hydrOXYzine PAMOATE 25 MG CAPSULE (FP) PO SCH ×3 (13:38→22:16)
[2022-08-08 16:28] LABS: ALBUMIN 3.5 g/dl (3.4-5.0); CALCIUM 9.3 mg/dL (8.5-10.1)
[2022-08-08 16:29] LABS: BLOOD UREA NITROGEN 15.8 mg/dL (7-18)
[2022-08-08 16:31] LABS: CREATININE 1.3 mg/dL (0.55-1.3)
[2022-08-08 16:33] LABS: BILIRUBIN,TOTAL 0.8 mg/dL (0.2-1); TOT PROT 6.9 g/dl (6.4-8.2)
[2022-08-08 16:45] LABS: HEMATOCRIT 38.8 % (35.4-49); HEMOGLOBIN 13.4 GM/dL (11.7-16.9); MCHC 34.6 g/dl (32.0-35.9); MEAN CELL VOLUME 83.9 fl (80-96); MEAN PLT VOLUME 8.9 fl (7.5-11.1); PLATELET COUNT 327 10^3/uL (134-434); RBC 4.62 M/mm3 (4.00-5.60); RDW 11.9 % (11.9-15.9); WHITE BLOOD COUNT 6.6 K/mm3 (4.0-10.0)
[2022-08-08] MEDS: IBUPROFEN 600 MG TABLET (FP) PO PRN (17:33)
[2022-08-08] MEDS: THIAMINE HCL 100 MG TABLET (FP) PO SCH (22:16)
[2022-08-08] MEDS: MELATONIN 5 MG TABLETS PO SCH (22:16)
[2022-08-09] MEDS: hydrOXYzine PAMOATE 25 MG CAPSULE (FP) PO SCH ×5 (05:56→23:06)
[2022-08-09] MEDS: diazePAM 5 MG TABLET PO SCH ×4 (05:56→23:07)
[2022-08-09] MEDS: IBUPROFEN 600 MG TABLET (FP) PO PRN (05:57)
[2022-08-09] MEDS: METHOCARBAMOL 500 MG TABLET PO PRN ×2 (05:57→17:40)
[2022-08-09] MEDS: PRENATAL VITAMINS W/ FOLIC ACID TABLET (FP) PO SCH (10:34)
[2022-08-09] MEDS: MELATONIN 5 MG TABLETS PO SCH (23:06)
[2022-08-09] MEDS: THIAMINE HCL 100 MG TABLET (FP) PO SCH (23:06)
[2022-08-10] MEDS: diazePAM 5 MG TABLET PO SCH ×3 (06:17→22:17)
[2022-08-10] MEDS: hydrOXYzine PAMOATE 25 MG CAPSULE (FP) PO SCH ×5 (06:17→22:17)
[2022-08-10] MEDS ORDERED: methaDONE HCL 10 MG TABLET (FOR DETOX USE ONLY) PO ONE (10:00)
[2022-08-10] MEDS: PRENATAL VITAMINS W/ FOLIC ACID TABLET (FP) PO SCH (10:17)
[2022-08-10] MEDS: IBUPROFEN 600 MG TABLET (FP) PO PRN (10:18)
[2022-08-10] MEDS: METHOCARBAMOL 500 MG TABLET PO PRN (10:22)
[2022-08-10] MEDS: MELATONIN 5 MG TABLETS PO SCH (22:17)
[2022-08-10] MEDS: THIAMINE HCL 100 MG TABLET (FP) PO SCH (22:17)
[2022-08-11] MEDS: hydrOXYzine PAMOATE 25 MG CAPSULE (FP) PO SCH ×5 (05:49→22:33)
[2022-08-11] MEDS: diazePAM 5 MG TABLET PO SCH ×2 (05:49→17:24)
[2022-08-11] MEDS: PRENATAL VITAMINS W/ FOLIC ACID TABLET (FP) PO SCH (10:43)
[2022-08-11] MEDS: METHOCARBAMOL 500 MG TABLET PO PRN (10:57)
[2022-08-11] MEDS: IBUPROFEN 600 MG TABLET (FP) PO PRN (10:57)
[2022-08-11] MEDS: MELATONIN 5 MG TABLETS PO SCH (22:33)
[2022-08-11] MEDS: THIAMINE HCL 100 MG TABLET (FP) PO SCH (22:33)
[2022-08-12] MEDS ORDERED: diazePAM 5 MG TABLET PO ONE (06:00)
[2022-08-12] MEDS: hydrOXYzine PAMOATE 25 MG CAPSULE (FP) PO SCH ×4 (06:26→17:40)
[2022-08-12] MEDS: METHOCARBAMOL 500 MG TABLET PO PRN ×2 (06:29→17:44)
[2022-08-12] MEDS ORDERED: methaDONE HCL 10 MG TABLET (FOR DETOX USE ONLY) PO ONE (10:00)
[2022-08-12] MEDS: PRENATAL VITAMINS W/ FOLIC ACID TABLET (FP) PO SCH (10:26)
[2022-08-12] MEDS: IBUPROFEN 600 MG TABLET (FP) PO PRN (17:43)
[2022-08-12 18:08] VITALS: BP 110/60; PULSE 70; RESP 16; TEMP 98.4
== END 2022-08-12 18:58 | disposition left against medical advice (07) | DRG 770 ==
LOC: YASAS 11:58 → Y6N 12:57
PROVIDERS: ADMIT Allergy & Immunology; ATTEND Surgery
PROC: HZ2ZZZZ Detoxification Services for Substance Abuse Treatment (ICD-10-PCS; principal; 2022-08-08)
DX: F11.23 Opioid dependence with withdrawal (principal); F10.230 Alcohol dependence with withdrawal, uncomplicated; F13.230 Sedative, hypnotic or anxiolytic dependence with withdrawal, uncomplicated; F14.20 Cocaine dependence, uncomplicated; F12.20 Cannabis dependence, uncomplicated
CPT/HCPCS: 36415; 80053; 85027; 86780; C9803-CS; U0003; U0005